=== PATIENT | female | born 1970 | race Caucasian/White ===

== ENCOUNTER 2022-08-28 12:34 | Outpatient (CLI) | payer BC | END 2022-08-28 12:35 | disposition home or self-care (01) | LOC: CSHMAMMO 12:34 | PROVIDERS: ATTEND Obstetrics & Gynecology | DX: Z12.31 Encounter for screening mammogram for malignant neoplasm of breast (principal) | CPT/HCPCS: 77063; 77067 ==

== ENCOUNTER 2023-04-03 09:31 | Outpatient (CLI) | payer BC ==
[2023-04-03] MEDS ORDERED: Iopamidol 300 61% 100 ML VIAL FS ONE (11:30)
== END 2023-04-03 09:32 | disposition home or self-care (01) ==
LOC: CSHCT 09:31
PROVIDERS: ATTEND Family Medicine
DX: R22.0 Localized swelling, mass and lump, head (principal)
CPT/HCPCS: 70491

== ENCOUNTER 2023-09-07 13:08 | Outpatient (CLI) | payer BC | END 2023-09-07 13:09 | disposition home or self-care (01) | LOC: CSHMAMMO 13:08 | PROVIDERS: ATTEND Obstetrics & Gynecology | DX: N63.21 Unspecified lump in the left breast, upper outer quadrant (principal) | CPT/HCPCS: G0279 ==

== ENCOUNTER → 2023-09-11 | Day surgery (SDC) | payer BC | LOC: CSHULT 12:26 | PROVIDERS: ATTEND Obstetrics & Gynecology | PROC: 0H95XZX Drainage of Chest Skin, External Approach, Diagnostic (ICD-10-PCS; principal; 2023-09-11) | DX: C50.412 Malignant neoplasm of upper-outer quadrant of left female breast (principal) | CPT/HCPCS: 19083; 88305; 88341; 88342; 88360 ==

== ENCOUNTER 2023-09-27 07:31 | Day surgery (SDC) | payer BC ==
[2023-09-25 13:10] VITALS: BMI 22.3
[2023-09-27] MEDS ORDERED: Bupivacaine PF 0.5% 30 ML VIAL ONE (10:55)
[2023-09-27] MEDS ORDERED: Promethazine HCl 25 MG/ML VIAL ONE (10:55)
[2023-09-27] MEDS ORDERED: Isosulfan Blue 50 MG/5 ML VIAL ONE (10:55)
[2023-09-27] MEDS ORDERED: HYDROcodone/Acetaminophen 5/325 mg Tablet ONE (10:55)
[2023-09-27] MEDS ORDERED: EPINEPHrine 1 MG/ML AMP ONE (10:55)
[2023-09-27] MEDS ORDERED: HYDROcodone/Acetaminophen 5/325 mg Tablet PO PRN ×2 (12:42)
== END 2023-09-27 15:40 | disposition home or self-care (01) ==
LOC: CSHNM 07:31
PROVIDERS: ATTEND Surgery
PROC: 0HBU0ZZ Excision of Left Breast, Open Approach (ICD-10-PCS; principal; 2023-09-27)
PROC: 07B60ZZ Excision of Left Axillary Lymphatic, Open Approach (ICD-10-PCS; principal; 2023-09-27)
DX: C50.412 Malignant neoplasm of upper-outer quadrant of left female breast (principal); Z79.899 Other long term (current) drug therapy; Z98.890 Other specified postprocedural states
CPT/HCPCS: 76098; 78195; 88307; 88341; 88342; A9541; C1713; J0171; J0665; J2550; Q9968

== ENCOUNTER 2024-05-13 12:50 | Outpatient (CLI) | payer BC | END 2024-05-13 12:51 | disposition home or self-care (01) | LOC: CSHMAMMO 12:50 | PROVIDERS: ATTEND Surgery | DX: Z08 Encounter for follow-up examination after completed treatment for malignant neoplasm (principal); Z86.000 Personal history of in-situ neoplasm of breast; Z98.890 Other specified postprocedural states | CPT/HCPCS: G0279 ==